=== PATIENT | female | born 1970 | race Caucasian/White ===

== ENCOUNTER 2023-04-05 14:29 | Outpatient (CLI) | payer OTHER | END 2023-04-05 14:30 | disposition home or self-care (01) | LOC: CSHMAMMO 14:29 | PROVIDERS: ATTEND Nurse Practitioner Family | DX: Z12.31 Encounter for screening mammogram for malignant neoplasm of breast (principal) | CPT/HCPCS: 77063; 77067 ==

== ENCOUNTER 2024-04-07 09:18 | Outpatient (CLI) | payer OTHER | END 2024-04-07 09:19 | disposition home or self-care (01) | LOC: CSHMAMMO 09:18 | PROVIDERS: ATTEND Nurse Practitioner Family | DX: Z12.31 Encounter for screening mammogram for malignant neoplasm of breast (principal) | CPT/HCPCS: 77063; 77067 ==